=== PATIENT | female | born 1955 | race Caucasian/White ===

== ENCOUNTER → 2017-09-06 | Outpatient (CLI) | payer OTHER ==
[~2017-09-06] MED LIST: COREG CR20 MG PO; CRESTOR5 MG PO; DIGOXIN0.125 MG/2 PO; DOLOGEN CAPLET1 TAB; LASIX40 MG PO; MAXITROL EYE DRO5 ML OP; TRICOR145 MG PO; VASOTEC2.5 MG PO
== END | disposition home or self-care (01) ==
LOC: PPH VACUNA 08:32
DX: Z23 Encounter for immunization (principal)

== ENCOUNTER 2017-10-04 07:58 | Outpatient (CLI) | payer OTHER | END 2017-10-04 16:13 | disposition home or self-care (01) | LOC: MAMO-SONO 07:58 | DX: N60.11 Diffuse cystic mastopathy of right breast (principal); N60.12 Diffuse cystic mastopathy of left breast ==

== ENCOUNTER 2018-08-29 07:38 | Outpatient (CLI) | payer OTHER | END 2018-08-29 07:52 | disposition home or self-care (01) | LOC: MAMO-SONO 07:38 | DX: Z12.31 Encounter for screening mammogram for malignant neoplasm of breast (principal); N60.12 Diffuse cystic mastopathy of left breast; N60.11 Diffuse cystic mastopathy of right breast ==

== ENCOUNTER 2019-09-17 07:49 | Outpatient (CLI) | payer OTHER | END 2019-09-17 07:52 | disposition home or self-care (01) | LOC: MAMO-SONO 07:49 | DX: Z12.31 Encounter for screening mammogram for malignant neoplasm of breast (principal); Z87.898 Personal history of other specified conditions; N60.11 Diffuse cystic mastopathy of right breast; N60.12 Diffuse cystic mastopathy of left breast ==